=== PATIENT | male | born 1990 | race Caucasian/White ===

== ENCOUNTER 2019-11-02 08:45 | Outpatient (CLI) | payer OTHER, SELFPAY ==
[2019-11-02 09:01] LABS: Hematocrit 47.3 % (40.0-54.0); Mean Corpuscular HGB Conc 33.8 g/dL (32.0-36.0); Mean Corpuscular Hemoglobin 31.1 pg (27.0-31.0); Mean Platelet Volume 8.9 fl (8.7-11.0); Platelet Count Result 266 K/mm3 (150-420); Red Blood Count 5.14 M/mm3 (4.70-6.10); Red Cell Distribution Width 11.5 % (11.6-14.4); White Blood Count 7.3 K/mm3 (4.8-10.8)
[2019-11-02 09:37] LABS: Alanine Aminotransferase 38 U/L (16-63); Albumin Level 3.8 g/dL (3.4-5.0); Alkaline Phosphatase 64 U/L (46-116); Anion Gap 9 mmol/L (8-16); Aspartate Amino Transferase 17 U/L (15-37); Bilirubin,Total 0.5 mg/dL (0.00-1.00); Blood Urea Nitrogen 16 mg/dL (7-18); CRP 1.5 mg/dL (0.0-0.9); Calcium 9.3 mg/dL (8.5-10.1); Carbon Dioxide 28 mmol/L (21-32); Chloride 102 mmol/L (98-108); Estimated Glomerular Filt Rate > 60; Glucose 96 mg/dL (70-99); Osmolality Calculated 289 mOsm/kg (285-295); Potassium 4.5 mmol/L (3.5-5.1); Sodium 139 mmol/L (136-145); Total Protein 7.7 g/dL (6.4-8.2)
== END 2019-11-02 08:46 | disposition home or self-care (01) ==
PROVIDERS: PCP Family Medicine; Visit Provider Family Medicine
DX: R10.9 Unspecified abdominal pain (principal)
CPT/HCPCS: 36415; 80053; 85027; 86140; 87491; 87591

== ENCOUNTER 2019-11-24 10:10 | Outpatient (CLI) | payer OTHER, SELFPAY ==
[2019-11-24 11:38] LABS: HIV 1 P24 AG Negative (Negative); HIV 1/2 AB Negative (Negative)
== END 2019-11-24 10:11 | disposition home or self-care (01) ==
LOC: CHSLAB 10:12
PROVIDERS: PCP Family Medicine; Visit Provider Family Medicine
DX: Z00.00 Encounter for general adult medical examination without abnormal findings (principal)
CPT/HCPCS: 36415; 86703

== ENCOUNTER 2023-07-29 13:25 | Outpatient (CLI) | payer OTHER, SELFPAY ==
[2023-07-29 14:03] LABS: Basophils Absolute Auto 0.03 K/mm3 (0.00-0.10); Basophils Percent Auto 0.4 % (0.0-1.0); Eosinophils Absolute Auto 0.16 K/mm3 (0.02-0.50); Eosinophils Percent Auto 2.2 % (1.0-6.0); Hematocrit 49.1 % (40.0-54.0); Hemoglobin 16.4 g/dL (14.0-18.0); Immature Granulocyte Absolute 0.02 K/mm3 (0.00-0.00); Immature Granulocyte Percent A 0.3 % (0.0-0.0); Lymphocytes Absolute Auto 2.38 K/mm3 (1.10-4.50); Lymphocytes Percent Auto 32.2 % (18.0-42.0); Mean Corpuscular HGB Conc 33.4 g/dL (32-36); Mean Corpuscular Volume 89.8 fL (78.0-102.0); Mean Platelet Volume 9.4 fl (8.7-11.0); Monocytes Percent Auto 8.1 % (2.0-11.0); Neutrophils Absolute Auto 4.19 K/mm3 (1.70-7.20); Neutrophils Percent Auto 56.8 % (50.0-70.0); Platelet Count Result 292 K/mm3 (150-420); Red Blood Count 5.47 M/mm3 (4.70-6.10); Red Cell Distribution Width 12.5 % (11.6-14.4); White Blood Count 7.4 K/mm3 (4.8-10.8)
[2023-07-29 14:22] LABS: Alanine Aminotransferase 63 U/L (16-63); Albumin Level 3.9 g/dL (3.4-5.0); Alkaline Phosphatase 52 U/L (46-116); Anion Gap 9 mmol/L (4-12); Aspartate Amino Transferase 24 U/L (15-37); Bilirubin,Total 0.4 mg/dL (0.00-1.00); Blood Urea Nitrogen 17 mg/dL (7-18); Calcium 9.3 mg/dL (8.5-10.1); Carbon Dioxide 28 mmol/L (21-32); Chloride 102 mmol/L (98-108); Estimated Glomerular Filt Rate > 60; Glucose 98 mg/dL (70-99); Osmolality Calculated 289 mOsm/kg (285-295); Potassium 4.2 mmol/L (3.5-5.1); Sodium 139 mmol/L (136-145); Total Protein 7.7 g/dL (6.4-8.2)
== END 2023-07-29 13:26 | disposition home or self-care (01) ==
PROVIDERS: PCP Family Medicine; Visit Provider Family Medicine
DX: Z79.899 Other long term (current) drug therapy (principal)
CPT/HCPCS: 36415; 80053; 85025

== ENCOUNTER 2024-08-31 10:39 | Outpatient (CLI) | payer OTHER, SELFPAY ==
--- OUTSIDE RECORDS SUMMARY | 2024-08-31 10:56 | XMS_ITS | Clinical Summary ---
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 Name Role Phone Aura Loza Primary Care Provider Allergies No known active allergies Active Problems No known active problems Social History Tobacco Use Types Packs/Day Years Used Date Smoking Tobacco: Never Assessed Sex and Gender Information Value Date Recorded Sex Assigned at Not on file Legal Sex Male 7:42 PM CDT Gender Identity Not on file Sexual Orientation Not on file Plan of Treatment Health Maintenance Due Date Last Done Comments Annual Physical 1992 Hepatitis C 09/10/2007 DTaP, Tdap and Td Vaccines ( 1 - Tdap) 2008 Hepatitis B Vaccines (1 of 3 - 19+ 3-dose series) 2008 COVID-19 Vaccine ( - 2023-2 5 season) 2023 HPV Vaccines Aged Out No longer eligi ble based on patient's age to complete this topic Meningococcal B Vaccine Aged Out No l onger eligible based on patient's age to complete this topic Meningococcal Vaccine Aged Out No rachel katelyn eligible based on patient's age to complete this topic Pneumococcal Vaccine: Pediat rics (0 to 5 Years) and At-Risk Patients (6 to 49 Years) Aged Out No longer eligible b ased on patient's age to complete this topic RSV Immunizations Under 20 Months Aged Out No longer eligible based on patient's age to complete this topic Insurance [employer] [facility] Care Teams Continuous Dryout Operator Helper Relationship Specialty Start Date End Date Aura Loza APNP [id number] [place] [address] PCP - General NURSE PRACTITIONER 11/27/18
[2024-08-31 11:12] LABS: Hematocrit 44.9 % (40.0-54.0); Hemoglobin 15.5 g/dL (14.0-18.0); Immature Granulocyte Percent A 0.2 % (0.0-0.0); Lymphocytes Absolute Auto 2.08 K/mm3 (1.10-4.50); Mean Corpuscular HGB Conc 34.5 g/dL (32-36); Mean Corpuscular Hemoglobin 32.9 pg (27.0-31.0); Mean Corpuscular Volume 95.3 fL (78.0-102.0); Nucleated Red Blood Cells Absolute Auto 0.00 K/mm3 (0.00-0.00); Nucleated Red Blood Cells Perc 0.0 % (0-0.0); Platelet Count Result 290 K/mm3 (150-420); Red Blood Count 4.71 M/mm3 (4.70-6.10); White Blood Count 5.9 K/mm3 (4.8-10.8)
[2024-08-31 12:10] LABS: Alanine Aminotransferase 34 U/L (6-50); Albumin Level 4.5 g/dL (3.5-5.1); Alkaline Phosphatase 53 U/L (38-126); Anion Gap 6 mmol/L (4-12); Aspartate Amino Transferase 30 U/L (17-59); Bilirubin,Total 0.7 mg/dL (0.2-1.3); Blood Urea Nitrogen 15 mg/dL (9-20); Calcium 9.4 mg/dL (8.4-10.2); Carbon Dioxide 28 mmol/L (22-30); Chloride 105 mmol/L (98-107); Estimated Glomerular Filt Rate > 60; Glucose 83 mg/dL (65-110); Osmolality Calculated 287 mOsm/kg (285-295); Potassium 4.4 mmol/L (3.4-5.0); Sodium 139 mmol/L (137-145); Total Protein 7.4 g/dL (6.3-8.2)
[2024-08-31 12:28] LABS: HIV 1 P24 AG Negative (Negative); HIV 1/2 AB Negative (Negative)
== END 2024-08-31 10:40 | disposition home or self-care (01) ==
LOC: CHSLAB 10:40
PROVIDERS: PCP Family Medicine; Visit Provider Family Medicine
DX: Z79.899 Other long term (current) drug therapy (principal)
CPT/HCPCS: 36415; 80053; 85025; 87806

== ENCOUNTER 2024-09-06 10:29 | Outpatient (RCR) | payer OTHER, SELFPAY ==
--- NOTE | 2024-09-06 12:11 | OPREHPOC ---
Outpatient Therapy Plan of Care This is a Multidisciplinary Plan of Care that may contain components documented by all disciplines (PT, OT, and ST.) PT Problem 1 PT Problem #1 Knowledge Deficit PT Goal 1 Goal / Goal Update Pt to verbalize understanding of HEP addressing posture, flexibility and mm strengthening. Target Visit 1 Progress Met
--- NOTE | 2024-09-06 12:11 | PTOPEVDC ---
Assessment and note entered by Fely Valera, PT Thank you for referring Martell Colbert to [facility].? An evaluation has been completed. No further treatment is needed. Evaluation Information Assessment Status Evaluation ICD-10 Condition Codes (PT) Pain in right shoulder M25.511,Pain in left shoulder M25.512 Other ICD-10 Condition Codes ( M75.80 PT) Subjective Information Pt reports his L shoulder started hurting last year and his Dr recommended therapy but he never got an order for it. His R shoulder started hurting a couple months ago and reports that it hurts more than his L, however he thinks this may be because his R shoulder pain is newer. He notes pain with reaching laterally and overhead as well as squeezing objects to lift them. He reports he sleeps on his side or on his stomach with his arm above his head and he reports this prevents him from falling asleep. He reports his pain in both shoulders is located in his arm on the side. Pt reports he is interested in getting exercises to help his shoulders and states he cannot attend many therapy sessions due to insurance and financial limitations. Reported Pain Level Pain Score 4,5: Self Report Assessment PT Clinical Summary Mr. Colbert is a 33 yo male who presents for skilled PT evaluation for bilateral shoulder pain. He demonstrates pain with reaching laterally and overhead as well as bilat mm weakness in all planes with pain reproduced with resisted abduction and ER. He also demonstrates postural impairments and notes moderate sleep interference due to pain when sleeping on his side and on his stomach with his arm raised overhead. Pt would benefit from skilled PT intervention to address these deficits to perform functional activities with less pain, however due to insurance and financial limitations, pt was educated in a phased HEP to improve shoulder strength. Pt verbalized understanding and will follow up as needed in the future if pain continues. Plan of Care Treatment Frequency and Eval and discharge this date, pt to perform HEP Duration independently and follow up as needed
== END 2024-09-06 20:00 | disposition home or self-care (01) ==
LOC: CHSPT 10:29
PROVIDERS: PCP Family Medicine; Visit Provider Family Medicine
DX: M75.80 Other shoulder lesions, unspecified shoulder (principal)
CPT/HCPCS: 97110; 97161